=== PATIENT | female | born 1990 | race African-American/Black ===

== ENCOUNTER 2019-11-13 18:31 | Emergency (ER) | payer OTHER ==
[~2019-11-13] VITALS: Ht 165.1 cm; Wt 61.2 kg
[2019-11-13] MEDS ORDERED: ACNE MEDICINE (18:43)
[2019-11-13 22:10] VITALS: BP 91/63
== END 2019-11-13 22:10 | disposition home or self-care (01) ==
LOC: M.ERS 18:31
DX: H43.391 Other vitreous opacities, right eye (principal); J45.909 Unspecified asthma, uncomplicated